=== PATIENT | female | born 1935 | race Caucasian/White ===

== ENCOUNTER → 2018-08-28 | Outpatient (CLI) | payer OTHER | LOC: US 17:59 ==

== ENCOUNTER 2018-11-18 10:02 | Inpatient (IN) | payer OTHER ==
[~2018-11-18] VITALS: Ht 152.4 cm; Wt 68.0 kg
[2018-11-18 10:34] LABS: CALCIUM 9.7 mg/dL (8.5-10.1); CARBON DIOXIDE 26.8 mmol/L (21-32); CHLORIDE SERUM 104 mmol/L (98-107); CREATININE SERUM 1.2 mg/dL (0.6-1.0); GLUCOSE SERUM 237 mg/dL (74-106); POTASSIUM SERUM 4.8 mmol/L (3.5-5.1); SODIUM SERUM 143 mmol/L (136-145)
[2018-11-18 10:38] LABS: ALBUMIN 3.5 g/dL (3.4-5.0); ALKALINE PHOSPHATASE 78 U/L (46-116); ALT/SGPT 37 U/L (14-59); AST/SGOT 26 U/L (15-37); BILIRUBIN TOTAL 0.5 mg/dL (0.20-1.00); TOTAL PROTEIN, SERUM 7.8 g/dL (6.4-8.2)
[2018-11-18 11:10] LABS: BASOPHIL % 0.5 % (0-2); PLATELET COUNT 227 x10^3mcL (130-400); RED CELL DISTRIBUTION WIDTH 13.4 % (11.5-14.5)
[2018-11-18 12:36] LABS: MAGNESIUM 1.4 mg/dL (1.8-2.4)
[2018-11-18 12:38] LABS: CHOLESTEROL/HDL RATIO 5.5
[2018-11-18 12:42] LABS: T3 TOTAL 1.27 ng/mL
[2018-11-18 12:46] LABS: FREE T4 1.1 ng/dL (0.76-1.46); T4(THYROXINE) 9.5 ug/dL (4.7-13.3)
[2018-11-18 15:39] VITALS: BP 118/46
[2018-11-18 17:59] VITALS: BP 131/46
[2018-11-18 20:48] VITALS: BP 147/58
[2018-11-19 04:17] LABS: microscopic required? NO
[2018-11-19 04:51] LABS: UA SPECIFIC GRAVITY <=1.005 (1.005-1.035); urine erythrocyte NEGATIVE (NEGATIVE)
[2018-11-19 04:52] VITALS: BP 123/55
[2018-11-19 05:00] LABS: AMPHETAMINE QUAL UR NONE DETECTED (See below)
[2018-11-19 06:46] LABS: CALCIUM 8.4 mg/dL (8.5-10.1); CARBON DIOXIDE 29.3 mmol/L (21-32); CHLORIDE SERUM 109 mmol/L (98-107); GLUCOSE SERUM 164 mg/dL (74-106); MAGNESIUM 1.9 mg/dL (1.8-2.4); PHOSPHOROUS 2.9 mg/dL (2.5-4.9); POTASSIUM SERUM 4.6 mmol/L (3.5-5.1); SODIUM SERUM 146 mmol/L (136-145)
[2018-11-19 06:51] LABS: BASOPHIL % 0.4 % (0-2); PLATELET COUNT 217 x10^3mcL (130-400); RED CELL DISTRIBUTION WIDTH 13.4 % (11.5-14.5)
[2018-11-19 09:14] VITALS: BP 143/56
[2018-11-19 12:56] VITALS: BP 126/56
[2018-11-19 12:57] VITALS: BP 134/56
[2018-11-19] MEDS ORDERED: LOV60I SC (12:58)
[2018-11-19] MEDS ORDERED: NIT0.4 SL (13:00)
[2018-11-19] MEDS ORDERED: ECO81 PO (13:00)
[2018-11-19] MEDS ORDERED: DIO160 PO (13:00)
[2018-11-19] MEDS ORDERED: APAP/HYDROCODON1 T13 PO (13:00)
[2018-11-19] MEDS ORDERED: MAG PO (13:03)
[2018-11-19] MEDS ORDERED: ZOFI IV (13:03)
[2018-11-19] MEDS ORDERED: MOR2I IV (13:03)
[2018-11-19] MEDS ORDERED: NPHOS PO (13:03)
[2018-11-19] MEDS ORDERED: BG FS (13:03)
[2018-11-19] MEDS ORDERED: TYL325 PO (13:03)
[2018-11-19] MEDS ORDERED: PRI20 PO (13:04)
[2018-11-19] MEDS ORDERED: GLIMEPIRIDE2 M1 PO (13:04)
[2018-11-19] MEDS ORDERED: [UNRECOGNIZED DRUG - CODE] TOP (13:04)
[2018-11-19] MEDS ORDERED: HUMULIN R100 U/1 M1 SC (13:04)
[2018-11-19] MEDS ORDERED: januvia PO (13:04)
== END 2018-11-19 14:41 | disposition short-term general hospital (02) | DRG 280 ==
LOC: ED 10:02 → DU 11:32
PROVIDERS: ADMIT Internal Medicine
DX: I21.4 Non-ST elevation (NSTEMI) myocardial infarction (principal); N17.0 Acute kidney failure with tubular necrosis; E86.0 Dehydration; E11.65 Type 2 diabetes mellitus with hyperglycemia; E11.51 Type 2 diabetes mellitus with diabetic peripheral angiopathy without gangrene; I12.9 Hypertensive chronic kidney disease with stage 1 through stage 4 chronic kidney disease, or unspecified chronic kidney disease; E11.22 Type 2 diabetes mellitus with diabetic chronic kidney disease; N18.9 Chronic kidney disease, unspecified; E83.42 Hypomagnesemia; E83.39 Other disorders of phosphorus metabolism; E78.5 Hyperlipidemia, unspecified; Z79.82 Long term (current) use of aspirin; Z79.4 Long term (current) use of insulin
CPT/HCPCS: 82962; 83880; 84439; J1650; J2270; J2405; J3490; J7030; Q0092

== ENCOUNTER → 2018-12-18 | Outpatient (CLI) | payer OTHER ==
[~2018-12-18] MED LIST: APAP/HYDROCODON1 T13 PO; BG FS; DIO160 PO; ECO81 PO; GLIMEPIRIDE2 M1 PO; HUMULIN R100 U/1 M1 SC; LOV60I SC; MAG PO; MOR2I IV; NIT0.4 SL; NPHOS PO; PRI20 PO; TYL325 PO; ZOFI IV; [UNRECOGNIZED DRUG - CODE] TOP; januvia PO
== END | disposition home or self-care (01) ==
LOC: RD 16:02
DX: M54.2 Cervicalgia (principal); M25.511 Pain in right shoulder